=== PATIENT | male | born 2000 | race African-American/Black ===

== ENCOUNTER 2025-07-08 19:40 | Emergency (ER) | payer SELFPAY ==
[2025-07-08] VITALS (10 sets, daily range): BP systolic 88–124; BP diastolic 58–80; BMI 26.4
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
== END 2025-07-08 23:45 | disposition home or self-care (01) ==
LOC: EMR 19:40
PROVIDERS: EMERGENCY PHYSICIAN Emergency Medicine; FAMILY PHYSICIAN Family Medicine
DX: S62.637A Displaced fracture of distal phalanx of left little finger, initial encounter for closed fracture (principal); S50.11XA Contusion of right forearm, initial encounter; S09.90XA Unspecified injury of head, initial encounter; S50.311A Abrasion of right elbow, initial encounter; Y04.0XXA Assault by unarmed brawl or fight, initial encounter; W10.9XXA Fall (on) (from) unspecified stairs and steps, initial encounter
CPT/HCPCS: 99284; 70450; 71046; 72125; 73080; 73090; 73130